=== PATIENT | female | born 1995 | race American Indian/Alaskan Native ===

== ENCOUNTER 2017-04-10 16:30 | Inpatient (IN) | payer MEDICAID ==
[2017-04-10] MEDS ORDERED: BRETHINE SUB-Q PRN (16:32)
[2017-04-10] MEDS ORDERED: MINERAL OIL PO PRN (16:32)
[2017-04-10] MEDS ORDERED: BRETHINE IVP PRN (16:32)
[2017-04-10] MEDS ORDERED: ZOFRAN IV PRN (16:32)
[2017-04-10] MEDS ORDERED: STADOL IV PRN (16:32)
[2017-04-10] MEDS ORDERED: ePHEDrine SULFATE IV PRN ×2 (16:32→20:54)
[2017-04-10] MEDS ORDERED: PITOCin/NS 20 UNIT/1000ML DRIP 20 UNITS/1,000 ML BAG IV SCH (17:00)
[2017-04-10] MEDS ORDERED: PITOCin/NS 30 UNIT/500ML 30 UNITS/500 ML BAG IV SCH (17:00)
[2017-04-10 17:49] LABS: Hematocrit 34.3 % (30.3-42.9); Mean Corpuscular HGB Conc 32 % (30-34); Mean Corpuscular Hemoglobin 29 pg (28-32); Mean Corpuscular Volume 90 fl (79-97); Platelet Count 220 K/mm3 (140-440); Red Blood Count 3.79 M/mm3 (3.65-5.03); Red Cell Distribution Width 13.4 % (13.2-15.2); White Blood Count 5.9 K/mm3 (4.5-11.0)
[2017-04-10] MEDS: PITOCin/NS 30 UNIT/500ML 30 UNITS/500 ML BAG IV SCH ×2 (18:59→20:01)
[2017-04-10] MEDS ORDERED: XYLOCAINE 2% INFILTRATI ONE (19:00)
[2017-04-10] MEDS: LACTATED RINGERS 1,000 ML IV SCH ×2 (19:01→20:26)
[2017-04-10] MEDS ORDERED: ePHEDrine SULFATE ONE (19:56)
[2017-04-10] MEDS ORDERED: NARCAN 2 MG/2 ML IV PRN (20:54)
--- NOTE | 2017-04-10 20:54 | Anesthesia Consultation ---
Anesthesia Consult and Med Hx Date of service: 04/10/17 - Airway Anesthetic Teeth Evaluation: Good ROM Head & Neck: Adequate Mental/Hyoid Distance: Adequate Mallampati Class: Class II Intubation Access Assessment: Probably Good - Pulmonary Exam CTA: Yes - Cardiac Exam Cardiac Exam: RRR - Pre-Operative Health Status ASA Pre-Surgery Classification: ASA2 Proposed Anesthetic Plan: Epidural - Pulmonary Hx Asthma: No COPD: No Hx Pneumonia: No - Cardiovascular System Hx Hypertension: No - Central Nervous System Hx Seizures: No Hx Psychiatric Problems: No - Endocrine Hx Renal Disease: No Hx End Stage Renal Disease: No Hx Hypothyroidism: No Hx Hyperthyroidism: No - Hematic Hx Anemia: No Hx Sickle Cell Disease: No - Other Systems Hx Alcohol Use: No
[2017-04-10] MEDS ORDERED: fentaNYL-BUPIV 2 MCG/ML-0.125% 200 MCG/100 ML BAG EPIDURAL SCH (21:00)
[2017-04-11] MEDS: LACTATED RINGERS 1,000 ML IV SCH (01:02)
--- NOTE | 2017-04-11 02:14 | History and Physical Report ---
History of Present Illness Date of examination: 04/11/17 Date of admission: 04/10/17 16:30 Chief complaint: I'm having contractions History of present illness: Patient is a 21 year old who presents for augmentation of labor for advanced dilation at term. She was found to be 5 cm in the office and having regular contractions. Her course has been uncomplicated. She began receiving in the first trimester. Past History Past Medical History: no pertinent history Past Surgical History: no surgical history Family/Genetic History: none Social history: single - Obstetrical History Expected Date of Delivery: 04/11/17 Actual Gestation: 40 Week(s) 0 Day(s) : 2 Para: 1 Medications and Allergies Allergies Allergy/AdvReac Type Severity Reaction Status Date / Time No Known Allergies Allergy Unverified 04/10/17 18:46 Active Meds: Active Medications Butorphanol Tartrate (Stadol) 2 mg IV Q2H PRN PRN Reason: Pain , Severe (7-10) Famotidine (Pepcid) 20 mg PO BID SYLVIA Lactated Ringer's (Lactated Ringers) 1,000 mls @ 125 mls/hr IV DIRECT SYLVIA Last Admin: 04/11/17 01:02 Dose: 125 mls/hr Oxytocin/Sodium Chloride (Pitocin/Ns 20 Unit/1000ml Drip) 20 units in 1,000 mls @ 125 mls/hr IV DIRECT SYLVIA Oxytocin/Sodium Chloride (Pitocin/Ns 30 Unit/500ml) 30 units in 500 mls @ 4 mls /hr IV TITR SYLVIA PRN Reason: Protocol Last Titration: 04/10/17 23:17 Dose: 24 ml/hr, 24 mls/hr Oxytocin/Sodium Chloride (Pitocin/Ns 30 Unit/500ml) 30 units in 500 mls @ 1 mls /hr IV TITR SYLVIA; 1 MILLIUNITS/MIN PRN Reason: Protocol Fentanyl/Bupivacaine/Sodium Chlor (Fentanyl-Bupiv 2 Mcg/Ml-0.125%) 200 mcg in 100 mls @ 12 mls/hr EPIDURAL TITR SYLVIA PRN Reason: Protocol Last Admin: 04/10/17 21:18 Dose: 12 mls/hr Mineral Oil (Mineral Oil) 30 ml PO QHS PRN PRN Reason: Constipation Ondansetron HCl (Zofran) 4 mg IV Q8H PRN PRN Reason: Nausea And Vomiting Last Admin: 04/10/17 23:13 Dose: 4 mg Review of Systems All systems: negative Genitourinary: pelvic pain, contractions - Vital Signs Vital signs: Vital Signs Pulse BP 88 117/61 04/10/17 19:07 04/10/17 19:07 Temp Pulse Resp BP Pulse Ox 97.5 F L 110 H 18 129/60 100 04/10/17 19:39 04/11/17 02:02 04/10/17 19:39 04/11/17 01:55 04/11/17 02:02 - Physical Exam Breasts: Cardiovascular: Regular rate, Normal S1, Normal S2 Lungs: Positive: Clear to auscultation, Normal air movement Abdomen: Positive: normal appearance, soft, normal bowel sounds. Negative: distention, tenderness Genitourinary (Female): Positive: normal external genitalia, normal perenium Vulva: both: normal Vagina: Positive: normal moisture. Negative: discharge Cervix: Negative: lesion, discharge Uterus: Positive: normal size, normal contour Adnexa: both: normal Anus/Rectum: Positive: normal perianal skin, heme negative. Negative: rectal mass, hemorrhoids Extremities: Deep Tendon Reflex Grade: Normal +2 - Obstetrical FHR: auscultation normal Cervical Dilatation: 5 Cervical Effacement Percentage: 80 station: -2 post Uterine Contraction Frequency (min): 7 Uterine Contraction Pattern: Regular Uterine Contraction Intensity: Moderate Results Result Diagrams: 04/10/17 17:20 All other labs normal. Assessment and Plan IUP at 39.6 weeks in early labor with dilation. Admit for labor. Augment with pitocin. Anticipate .
--- NOTE | 2017-04-11 02:21 | Procedure Note ---
OB Delivery Note - Delivery Date of Delivery: 04/11/17 Surgeon: IVIS ESPAÑA Estimated blood loss: 100cc - Vaginal Delivery presentation: vertex Delivery position: OP Intrapartum events: none Delivery induction: none Delivery augmentation: rupture of membranes, pitocin Delivery monitor: external FHT, external uterine Route of delivery: Delivery placenta: spontaneous Delivery cord: 3 umbilical vessels Episiotomy: none Delivery laceration: none Anesthesia: epidural Delivery comments: Viable male delivered over intact perineum in rop position. Infant placed on maternal abdomen. Cord clamped and cut when done pulsating. Weight 6 pounds 14 ounces. Apgars 9,9. Placenta delivered spontaneously and intact with no abnormal findings. Patient tolerated procedure well. - Infant A at 1 minute: 9 at 5 minutes: 9 Infant Gender: Male (6 pounds 14 ounces)
[2017-04-11] MEDS ORDERED: PEPCID PO SCH (03:00)
[2017-04-11] MEDS ORDERED: LANSINOH TP PRN (04:06)
[2017-04-11] MEDS ORDERED: ZOFRAN IV PRN (04:06)
[2017-04-11] MEDS ORDERED: BENADRYL PO PRN (04:06)
[2017-04-11] MEDS ORDERED: SODIUM CHLORIDE FLUSH SYRINGE 10 ML IV NR (04:06)
[2017-04-11] MEDS ORDERED: NORCO 5/325 PO PRN (04:06)
[2017-04-11] MEDS ORDERED: TUCKS PAD TP PRN (04:06)
[2017-04-11] MEDS ORDERED: TYLENOL PO PRN (04:06)
[2017-04-11] MEDS ORDERED: PHENERGAN PO PRN (04:06)
[2017-04-11] MEDS ORDERED: MILK OF MAGNESIA PO PRN (04:06)
[2017-04-11] MEDS ORDERED: DULCOLAX PR PRN (04:06)
[2017-04-11] MEDS: MOTRIN PO SCH ×5 (05:09→21:48)
[2017-04-11] MEDS: PRENATAL VITAMIN PO SCH (10:15)
[2017-04-11] MEDS: COLACE PO SCH ×2 (10:15→21:08)
--- NOTE | 2017-04-11 12:02 | Progress Note ---
Assessment and Plan PPD 0 s/p . Doing well. Plan for discharge in the am Subjective - Subjective Date of service: 04/11/17 Interval history: Patient is a 21 year old who presents for augmentation of labor for advanced dilation at term. She was found to be 5 cm in the office and having regular contractions. Her course has been uncomplicated. She began receiving in the first trimester. Patient reports: appetite normal, voiding normally, pain well controlled [place]: doing well Objective - Vital Signs Latest vital signs: Vital Signs Temp Pulse Pulse Resp BP BP Pulse Ox 04/11/17 08:32 98.4 F 72 18 102/58 04/11/17 04:30 98.0 F 89 20 116/67 04/11/17 03:13 98.5 F 89 18 120/66 100 04/11/17 03:10 85 120/66 04/11/17 03:07 79 100 04/11/17 03:02 85 100 04/11/17 03:01 98.3 F 84 18 115/61 100 04/11/17 02:57 91 H 100 04/11/17 02:55 87 115/62 04/11/17 02:52 84 100 04/11/17 02:47 89 100 04/11/17 02:42 90 100 04/11/17 02:40 95 H 122/64 04/11/17 02:37 95 H 100 04/11/17 02:32 89 100 04/11/17 02:31 98.5 F 90 18 122/64 100 04/11/17 02:27 65 78 L 04/11/17 02:25 96 H 135/63 04/11/17 02:24 60 76 L 04/11/17 02:22 87 100 04/11/17 02:19 87 82 L 04/11/17 02:17 94 H 100 04/11/17 02:12 99 H 100 04/11/17 02:10 100 H 133/62 04/11/17 02:02 110 H 100 04/11/17 02:01 98.0 F 100 H 18 133/62 100 04/11/17 01:56 99 H 99 04/11/17 01:55 100 H 129/60 04/11/17 01:51 102 H 99 04/11/17 01:46 96.9 F L 103 H 100 H 18 126/59 126/59 100 06/07/17 01:32 61 82 L 04/11/17 01:27 111 H 100 04/11/17 01:22 114 H 99 04/11/17 01:17 107 H 114/54 100 04/11/17 01:12 109 H 100 04/11/17 01:07 95 H 100 04/11/17 01:02 100 H 100 04/11/17 00:57 101 H 99 04/11/17 00:52 103 H 100 04/11/17 00:50 97 H 92 04/11/17 00:47 103 H 99 04/11/17 00:46 100 H 107/51 04/11/17 00:42 117 H 100 04/11/17 00:37 109 H 96 04/11/17 00:32 101 H 100 04/11/17 00:27 92 H 99 04/11/17 00:22 85 100 04/11/17 00:17 92 H 100 04/11/17 00:16 100 H 112/60 04/11/17 00:12 93 H 100 04/11/17 00:07 95 H 100 04/11/17 00:02 93 H 100 04/10/17 23:57 93 H 100 04/10/17 23:52 88 100 04/10/17 23:47 101 H 100 04/10/17 23:46 110 H 110/50 04/10/17 23:42 97 H 100 04/10/17 23:37 100 H 100 04/10/17 23:32 102 H 100 04/10/17 23:30 107 H 94 04/10/17 23:27 45 L 86 04/10/17 23:23 38 L 04/10/17 23:22 100 H 62 L 04/10/17 23:17 112 H 100 04/10/17 23:16 102 H 127/67 6 L 04/10/17 23:12 117 H 71 L 04/10/17 23:10 101 H 92 04/10/17 23:07 124 H 91 04/10/17 23:04 106 H 93 04/10/17 23:02 125 H 94 04/10/17 22:58 45 L 04/10/17 22:57 112 H 28 L 04/10/17 22:52 92 H 62 L 04/10/17 22:47 102 H 98 04/10/17 22:46 113 H 154/74 04/10/17 22:42 95 H 91 04/10/17 22:41 107 H 85 04/10/17 22:37 106 H 93 04/10/17 22:35 102 H 89 04/10/17 22:32 98 H 89 04/10/17 22:30 112 H 83 L 04/10/17 22:27 112 H 92 04/10/17 22:23 93 H 94 04/10/17 22:22 92 H 100 04/10/17 22:17 97 H 119/67 95 04/10/17 22:12 98 H 18 L 04/10/17 22:08 85 69 L 04/10/17 22:06 88 100 04/10/17 22:02 70 58 L 04/10/17 22:00 89 100 04/10/17 21:55 120 H 60 L 04/10/17 21:54 113 H 94 04/10/17 21:49 43 L 72 L 04/10/17 21:47 84 118/60 04/10/17 21:44 113 H 100 04/10/17 21:39 112 H 90 04/10/17 21:38 102 H 83 L 04/10/17 21:34 89 100 04/10/17 21:29 90 98 04/10/17 21:24 100 H 100 04/10/17 21:23 32 L 0 L 04/10/17 21:19 99 H 100 04/10/17 21:14 100 H 100 04/10/17 21:09 117 H 100 04/10/17 21:04 118 H 100 04/10/17 21:01 98 H 157/64 04/10/17 20:59 105 H 100 04/10/17 20:54 117 H 111/69 100 04/10/17 20:52 111 H 107/51 04/10/17 20:50 96 H 110/58 04/10/17 20:49 103 H 100 04/10/17 20:48 95 H 114/56 04/10/17 20:46 104 H 114/67 04/10/17 20:44 89 112/62 100 04/10/17 20:42 91 H 112/59 04/10/17 20:40 82 114/61 04/10/17 20:39 87 100 04/10/17 20:38 104 H 112/57 04/10/17 20:34 102 H 100 04/10/17 20:33 56 L 59 L 04/10/17 20:28 87 100 04/10/17 20:23 104 H 100 04/10/17 20:18 88 100 04/10/17 20:13 84 100 04/10/17 20:10 82 128/75 04/10/17 20:08 94 H 100 04/10/17 20:03 98 H 100 04/10/17 19:58 88 100 04/10/17 19:53 89 100 04/10/17 19:40 80 115/64 04/10/17 19:39 97.5 F L 88 18 115/64 04/10/17 19:07 88 117/61 Intake and Output 04/10/17 04/11/17 04/11/17 22:59 06:59 14:59 Intake Total 1000 1000 120 Output Total 600 Balance 1000 400 120 Intake: IV 1000 1000 Lactated Ringers 1,000 ml 1000 1000 @ 125 mls/hr IV DIRECT SYLVIA Rx#:[id number] Oral 120 Output: Urine 600 Void 600 Other: Total, Intake Amount 120 Total, Output Amount 600 # Voids Void 1 1 Weight 85.275 kg Estimated Blood Loss 150 - Exam Breasts: Present: deferred Cardiovascular: Present: Regular rate, Normal S1, Normal S2 Lungs: Present: Clear to auscultation, Normal air movement Abdomen: Present: normal appearance, soft, normal bowel sounds Uterus: Present: normal, firm Extremities: Present: normal
[2017-04-11 14:36] LABS: Hematocrit 31.9 % (30.3-42.9); Hemoglobin 10.3 gm/dl (10.1-14.3)
[2017-04-12] MEDS: MOTRIN PO SCH ×3 (05:56→11:34)
[2017-04-12 10:25] VITALS: BP 109/59
[2017-04-12] MEDS: COLACE PO SCH (11:35)
[2017-04-12] MEDS: PRENATAL VITAMIN PO SCH (11:35)
--- NOTE | 2017-04-12 13:10 | Progress Note ---
Subjective Date of service: 04/12/17 Interval history: 1st day after normal vaginal delivery Patient is in the bed, relatively comfortable. Pain is well controlled with pain meds. Ambulated well. No residual neurological deficit. No anesthesia complications Objective - Constitutional Vitals: Vital Signs - 12hr 04/12/17 04/12/17 01:26 08:20 Temperature 97.9 F 98.4 F Pulse Rate [ 72 69 Right From Monitor] Respiratory 18 18 Rate Blood Pressure 104/55 109/59 [Right Arm] - Labs CBC & Chem 7: 04/11/17 14:21
--- NOTE | 2017-04-12 17:52 | Discharge Summary ---
Providers - Providers Date of Admission: 04/10/17 16:30 Date of discharge: 04/12/17 Attending physician: IVIS ESPAÑA Primary care physician: IVIS ESPAÑA Hospitalization Reason for admission: active labor, IUP at term Delivery: Episiotomy: none complications: none Discharge diagnosis: IUP at term delivered baby: male Hospital course: unremarkable Condition at discharge: Good Disposition: DC-01 TO HOME OR SELFCARE Plan - Discharge Medications Prescriptions: Ibuprofen [Motrin] 600 mg PO Q8H PRN #30 tablet PRN Reason: Pain Pnv with Ca,No.72/Iron/FA [ Plus Tablet] 1 each PO DAILY #30 tablet - Provider Discharge Summary Additional instructions: [] Smoking cessation referral if applicable(refer to patient education folder for contact #) [] Refer to [facility]'s [facility] Booklet Call your doctor immediately for: * Fever > 100.5 * Heavy vaginal bleeding ( >1 pad per hour) * Severe persistent headache * Shortness of breath * Reddened, hot, painful area to leg or breast * Drainage or odor from incision. * Keep incision clean and dry at all times and follow doctor's instructions regarding bathing/showering - Follow up plan Follow up: IVIS ESPAÑA MD [Primary Care Provider] - [address] Forms: [facility] Discharge Summary, Discharge Signature Page
== END 2017-04-12 16:00 | disposition home or self-care (01) | DRG 775 ==
LOC: LD 16:30 → OB 04-11 04:32
PROVIDERS: ADMIT Obstetrics & Gynecology; ATTEND Obstetrics & Gynecology
PROC: 10E0XZZ Delivery of Products of Conception, External Approach (ICD-10-PCS; principal; 2017-04-11)
PROC: 00HU33Z Insertion of Infusion Device into Spinal Canal, Percutaneous Approach (ICD-10-PCS; 2017-04-11)
PROC: 3E0R3CZ (ICD-10-PCS; 2017-04-11)
DX: O80 Encounter for full-term uncomplicated delivery (principal); Z3A.39 39 weeks gestation of pregnancy; Z37.0 Single live birth
CPT/HCPCS: 36415; 85014; 85018; 85027; 86850; 86900; 86901; J2405; J2590; J7120